=== PATIENT | male | born 1970 | race Caucasian/White ===

== ENCOUNTER 2021-09-02 07:40 | Day surgery (SDC) | payer OTHER ==
[2021-09-02] VITALS (9 sets, daily range): BP systolic 86–150; BP diastolic 51–74
[~2021-09-02] VITALS: Ht 185.4 cm; Wt 75.0 kg
[2021-09-02 09:03] LABS: HEMATOCRIT 41.8 % (39.0-50.0); HEMOGLOBIN 13.7 g/dl (14.0-18.0); IMMATURE GRANULOCYTES 0.2 % (0.0-5.0); MEAN CELL VOLUME 97.2 fL CALC (80.0-100.0); MEAN CORPUSCULAR HGB 31.9 pG CALC (26.0-32.0); MEAN CORPUSCULAR HGB CONC 32.8 g/dL CAL (32.0-36.0); NEUT# 8.59 thou/uL (1.82-7.42); RED BLOOD COUNT 4.3 mill/uL (4.70-6.10); RED CELL DISTRI WIDTH 13.9 % (11.5-15.5)
[2021-09-02 10:57] LABS: ALBUMIN 3.6 g/dL (3.2-5.0); ALKALINE PHOSPHATASE 91 u/l (38-126); BILIRUBIN, TOTAL 0.6 mg/dL (0.0-1.4); BUN 7 mg/dL (9-20); BUN/CREATININE RATIO 11 (12-20 (CALC)); CARBON DIOXIDE 27 mmol/l (22-30); CHLORIDE 107 mmol/l (95-108); CREATININE 0.7 mg/dL (0.7-1.3); GFR > 60 ML/MIN (>=60 (CALC)); GFR FOR AFR.AMER. > 60 ML/MIN (>=60 (CALC)); SGOT/AST 25 u/l (17-59); SODIUM 137 mmol/l (137-146); TOTAL PROTEIN 6.4 g/dL (6.3-8.2)
[2021-09-02 10:59] LABS: ANION GAP 7 (6-22 (CALC)); POTASSIUM 3.7 mmol/l (3.5-5.1)
[2021-09-02] MEDS ORDERED: CLONIDINE0.1 MG PO (15:18)
[2021-09-02] MEDS ORDERED: KLONOPIN0.5 MG PO (15:19)
[2021-09-02] MEDS ORDERED: NALTREXONE50 MG PO (15:19)
[2021-09-03 04:00] VITALS: BP 108/71
[2021-09-03 05:31] LABS: ALBUMIN 3.9 g/dL (3.2-5.0); ALKALINE PHOSPHATASE 107 u/l (38-126); BUN 9 mg/dL (9-20); BUN/CREATININE RATIO 15 (12-20 (CALC)); CHLORIDE 109 mmol/l (95-108); CREATININE 0.6 mg/dL (0.7-1.3); GFR > 60 ML/MIN (>=60 (CALC)); GFR FOR AFR.AMER. > 60 ML/MIN (>=60 (CALC)); MAGNESIUM 2.4 mg/dL (1.6-2.3); SGOT/AST 30 u/l (17-59); SODIUM 140 mmol/l (137-146); TOTAL PROTEIN 6.8 g/dL (6.3-8.2)
[2021-09-03 05:35] LABS: ANION GAP 15 (6-22 (CALC)); BILIRUBIN, TOTAL 0.9 mg/dL (0.0-1.4); CARBON DIOXIDE 21 mmol/l (22-30); POTASSIUM 4.7 mmol/l (3.5-5.1)
[2021-09-03 07:23] VITALS: BP 107/55
[2021-09-03 13:19] VITALS: BP 90/59
[2021-09-03 14:50] VITALS: BP 100/63
== END 2021-09-03 17:02 | disposition home or self-care (01) | DRG 897 ==
LOC: MS2 07:40 → ANR 07:40
PROVIDERS: ATTEND Anesthesiology
DX: F11.20 Opioid dependence, uncomplicated (principal)
CPT/HCPCS: J2060; J2354